=== PATIENT | female | born 1985 | race Hispanic/Latino ===

== ENCOUNTER 2021-06-01 12:21 | Outpatient (CLI) | payer BC | END 2021-06-01 20:07 | disposition home or self-care (01) | LOC: RAD 12:21 | PROVIDERS: ATTEND Nurse Practitioner Family | DX: M25.511 Pain in right shoulder (principal); R20.2 Paresthesia of skin ==

== ENCOUNTER 2023-02-06 12:47 | Outpatient (CLI) | payer OTHER | END 2023-02-06 19:59 | disposition home or self-care (01) | LOC: RAD 12:47 | PROVIDERS: ATTEND Nurse Practitioner Family | DX: M25.561 Pain in right knee (principal) ==